=== PATIENT | female | born 1970 | race Caucasian/White ===

== ENCOUNTER 2020-06-13 15:36 | Emergency (ER) | payer OTHER ==
[~2020-06-13] VITALS: Ht 172.7 cm; Wt 65.8 kg
[2020-06-13] MEDS ORDERED: DULOXETINE HCL60 MG PO (15:59)
[2020-06-13] MEDS ORDERED: LITHIUM CARBON300 M1 PO (16:00)
[2020-06-13] MEDS ORDERED: ASPIRIN81 MG PO (16:00)
[2020-06-13] MEDS ORDERED: MELOXICAM5 MG PO (16:00)
[2020-06-13] MEDS ORDERED: LEVOTHYROXINE100 MC2 PO (16:00)
[2020-06-13] MEDS ORDERED: ACETAMINOPHEN-1 EAC1 PO (16:01)
[2020-06-13] MEDS ORDERED: FAMCICLOVIR500 MG PO (16:14)
[2020-06-13] MEDS ORDERED: PREDNISONE20 MG PO (16:14)
== END 2020-06-13 16:26 | disposition home or self-care (01) ==
LOC: ED 15:36
DX: G51.0 Bell's palsy (principal); Z88.8 Allergy status to other drugs, medicaments and biological substances; Z79.899 Other long term (current) drug therapy; Z79.82 Long term (current) use of aspirin; Z91.048 Other nonmedicinal substance allergy status
CPT/HCPCS: 99283; J7512